=== PATIENT | male | born 1945 | race Caucasian/White ===

== ENCOUNTER → 2017-04-12 | Day surgery (SDC) | payer OTHER ==
[~2017-04-12] VITALS: Ht 180.3 cm; Wt 90.3 kg
[~2017-04-12] MED LIST: *morphine SULFATE 8 MG/ML PERIprocedure ONLY ONE; ACETAMINOPHEN 1000 MG/100 ML 100 ML IV ONE; ACETAMINOPHEN/HYDROcodone 325 MG/5 MG TAB ONE; ACETAMINOPHEN/HYDROcodone 325 MG/5 MG TAB PO PRN; BUPIVACAINE HCL PF 0.5% 30 ML VIAL ONE; CHLORHEXIDINE GLUCONATE 2 % 1 PACK (2 CLOTHS) TOPICAL PRN; CHLORHEXIDINE GLUCONATE 4% SOLN 120 ML BTL TOPICAL SCH; DEXAMETHASONE SOD PHOS 4 MG/ML VIAL ONE; DO NOT ADM ANY ANTICOAGULANT DRUGS PRN; FAMOTIDINE 20 MG/2 ML VIAL ONE; GENTAMICIN SULFATE 80 MG/2 ML VIAL ONE; INSULIN HUMAN REGULAR 1,000 UNITS/10 ML VIAL SQ PRN; LACTATED RINGER'S 1000 ML IV PRN; METOPROLOL TARTRATE 25 MG TAB PO PRN; MIDAZOLAM HCL 2 MG/2 ML VIAL ONE; MORPHINE SULFATE 4 MG/ML INJ ONE; ONDANSETRON HCL 4 MG/2 ML VIAL IV PUSH ONE; POVIDONE IODINE 5% (ANTISEPSIS KIT) 4 APPLICATIONS EACH NARE PRN; PROPOFOL 200 MG/20 ML AMP IV ONE; SODIUM CHLORID 0.9% 500 ML IV PRN; ceFAZolin 1,000 MG/NS 100 ML IV SCH; ePHEDrine/NS 25 MG/5 ML SYR IV ONE
[2017-04-12 16:30] VITALS: BP 132/78; PULSE 61; RESP 18; TEMP 97.6; O2SAT 96
--- NOTE | 2017-04-12 22:58 | MP ---
cc: UTE MOELLER DATE OF SURGERY 04/12/17 PREOPERATIVE DIAGNOSIS Right foot big toe hallux rigidus, MTP joint osteoarthritis. POSTOPERATIVE DIAGNOSIS Right foot big toe hallux rigidus, MTP joint osteoarthritis. PROCEDURE Right foot big toe hallux rigidus correction with kelectomy. SURGEON Odell Moeller MD ASSESSMENT RADHA Tello. SPECIMENS None. ESTIMATED BLOOD LOSS None. ANESTHESIA general, local SPECIMEN None TOURNIQUET TIME 15 minutes at 250 mmHg. CONDITION Stable PLAN OF ACTIVITY As per orders. PROCEDURE IN DETAIL The patient was brought into operating room, had satisfactory anesthesia by Dr. Paco Godinez Department of Anesthesia. Right lower extremity was prepped and draped in usual sterile manner. Extremity was exsanguinated by Carmelo wrap. Tourniquet inflated to 250 mmHg. Dorsal exposure to the big toe MTP joint was made. Dissection to subcutaneous tissue. The extensor hallucis longus tendon was retracted in a fibular manner. Capsulotomy was performed. Oscillating saw was used to perform a kelectomy and removal of the dorsal osteophyte involving the MTP joint of the big toe. Also medial eminence in the lateral eminence. With this, patient was found to have dorsiflexion up to 80 degrees. The wound was irrigated with sterile saline. The wound itself was dry. The capsule was repaired with 2-0 Vicryl suture. Skin and subcutaneous layers with 2-0 Vicryl and 3-0 Vicryl. Skin was approximated with interrupted 2-0 nylon. Tourniquet was deflated. Wound itself was dry. Sterile dressing applied. The patient tolerated the procedure and went to recovery room in stable and satisfactory condition. MD REVA Gaines/ /2:47 PM /10:41 PM
== END | disposition home or self-care (01) ==
LOC: HSDC 10:53
PROVIDERS: ATTEND Orthopaedic Surgery Orthopaedic Surgery of the Spine
DX: M20.21 Hallux rigidus, right foot (principal); M19.071 Primary osteoarthritis, right ankle and foot; M81.0 Age-related osteoporosis without current pathological fracture; M83.9 Adult osteomalacia, unspecified
CPT/HCPCS: 01480; 28289; J0131; J0690; J1100; J1580; J2250; J2270; J2405; J3010; J7120